=== PATIENT | male | born 2000 | race Asian ===

== ENCOUNTER 2024-08-15 17:00 | Emergency (ER) | payer OTHER ==
[~2024-08-15] VITALS: Ht 172.7 cm; Wt 65.8 kg
[2024-08-15 17:40] VITALS: TEMP 99.1
[2024-08-15] MEDS: LIDOCAINE VISC 2% SOLN 15 ML UDC PO ONE (20:30)
[2024-08-15] MEDS: ONDANSETRON HCL INJ 2MG/ML 2ML 2 MG/ML VIAL IV STA (20:30)
[2024-08-15 20:37] LABS: BASOPHILS % 0.2 % (0.0-1.0); EOSINOPHILS # (AUTO) 0.1 (0.0-0.4); EOSINOPHILS % 0.5 % (0.0-6.0); HEMATOCRIT 54.7 % (38.2-49.6); HEMOGLOBIN 17.4 g/dL (14.0-18.0); LYMPHOCYTES # (AUTO) 1.6 (1.0-3.2); LYMPHOCYTES % 11.9 % (18.0-39.1); MEAN CORPUSCULAR HGB CONC 31.8 g/dL (31-35); MEAN CORPUSCULAR VOLUME 97.5 fL (81-99); MONOCYTES # (AUTO) 1.2 (0.2-0.8); MONOCYTES % 8.5 % (4.4-11.3); NEUTROPHILS # (AUTO) 10.8 (2.1-6.9); NEUTROPHILS % 78.5 % (38.7-80.0); PLATELET COUNT 205 x10e3/uL (140-360); RED BLOOD COUNT 5.61 x10e6/uL (4.3-5.7); RED CELL DISTRIBUTION WIDTH 12.8 % (11.7-14.4); WHITE BLOOD COUNT 13.73 x10e3/uL (4.8-10.8)
[2024-08-15] MEDS: MAGNESIUM/ALUMINUM/SIMETHICONE 30 ML UDC PO ONE (20:41)
[2024-08-15] MEDS: BELLADONNA ALK/PHENOBARBITAL 5 ML UDC PO ONE (20:42)
[2024-08-15] MEDS: SODIUM CHLORIDE 0.9% 1000ML 1,000 ML IV ONE (20:44)
[2024-08-15 21:01] LABS: ALBUMIN 5.3 g/dL (3.5-5.0); ALBUMIN/GLOBULIN RATIO 1.4 (0.8-2.0); BILIRUBIN,TOTAL 1.8 mg/dL (0.2-1.2); CALCIUM 10.4 mg/dL (8.4-10.2); CREATININE, SERUM 1.05 mg/dL (0.72-1.25); TOTAL PROTEIN 9.2 g/dL (6.5-8.1)
[2024-08-15 21:18] VITALS: PULSE 84; RESP 19
[2024-08-15] MEDS ORDERED: PANTOPRAZOLE SO40 MG PO (22:05)
[2024-08-15] MEDS ORDERED: ONDANSETRON ODT4 MG SL (22:05)
[2024-08-15 22:12] VITALS: BP 126/81; PULSE 98; RESP 16; TEMP 99; O2SAT 99
== END 2024-08-15 22:14 | disposition home or self-care (01) ==
LOC: ER 17:07
DX: R11.2 Nausea with vomiting, unspecified (principal); K29.20 Alcoholic gastritis without bleeding; K21.00 Gastro-esophageal reflux disease with esophagitis, without bleeding
CPT/HCPCS: 36415; 71046; 80053; 83690; 85025; 99284; J2405; J2470; J7030